=== PATIENT | female | born 1960 | race American Indian/Alaskan Native ===

== ENCOUNTER 2017-02-25 07:43 | Inpatient (IN) | payer MEDICAID ==
[2017-02-25 07:48] VITALS: O2SAT 98; BMI 30.8
--- NOTE | 2017-02-25 07:51 | ED PDOC ---
Psych Transfer Clearance - Clearance Statement Clearance Statement: Reviewed vital signs, lab results and transfer papers. Patient clinically stable for psychiatric admission.
[2017-02-25] MEDS ORDERED: QUEtiapine 300 MG TABLET PO ONE (18:47)
[2017-02-25] MEDS ORDERED: DiphenhydrAMINE 50 mg/ml Inj IVP PRN (18:52)
[2017-02-26 07:05] LABS: ALB/GLOB RATIO 1.3 (1.0-2.1); ALKALINE PHOSPHATASE 99 U/L (38-126); ALT/SGPT 28 U/L (9-52); AST/SGOT 20 U/L (14-36); BILIRUBIN,TOTAL 0.3 mg/dl (0.2-1.3); BLOOD UREA NITROGEN 10 mg/dl (7-17); CALCIUM 9.1 mg/dL (8.4-10.2); CARBON DIOXIDE 26 mmol/L (22-30); CHLORIDE 110 mmol/L (98-107); CHOLESTEROL 137 mg/dL (0-199); GFR AFRICAN-AMERICAN > 60; GLUCOSE,RANDOM 93 mg/dL (65-105); POTASSIUM 3.7 MMOL/L (3.6-5.0); SODIUM 145 mmol/l (132-148); TOTAL PROTEIN 6.5 G/DL (6.3-8.2)
--- NOTE | 2017-02-26 12:30 | PCM.PSYCH ---
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 long standing history of depression treated in community psychiatrist. denies previous suicidal attempts. was feeling overwhelmed suicidal thoughts. Current Medications: Active Medications Generic Name Dose Route Start Last Admin Trade Name Freq PRN Reason Stop Dose Admin Amlodipine Besylate 5 mg 02/26/17 09:00 02/26/17 09:26 Norvasc PO 5 mg DAILY ELVIN Administration Diphenhydramine HCl 50 mg 02/25/17 18:52 Benadryl IVP Q6 PRN anxiety/eps Diphenhydramine HCl 25 mg 02/25/17 18:53 02/26/17 09:29 Benadryl PO 25 mg Q6 PRN Administration prn eps Haloperidol 5 mg 02/25/17 22:00 02/26/17 09:58 Haldol PO Not Given Q6 ELVIN Haloperidol Lactate 5 mg 02/25/17 18:51 Haldol IVP Q6 PRN Psychosis Lorazepam 2 mg 02/25/17 16:40 Ativan IM Q4 PRN Anxiety/Agitation,Unable PO Lorazepam 2 mg 02/25/17 16:40 02/25/17 17:28 Ativan PO 2 mg Q4 PRN Administration Anxiety/Agitation Past Psychiatric History - Past Psychiatric History Prior Professional Help: outpatient inpatient prior various History of Abuse: denies History of Family Illness: questionable history depression Pertinent Medical Hx (Current Medical&Sleep Prob, Allergies): Allergies Allergy/AdvReac Type Severity Reaction Status Date / Time No Known Allergies Allergy Verified 02/07/15 04:51 SEROquel 300 mg PO BID 06/15/14 Xanax 2 mg PO TID 06/15/14 HCTZ 10/17/14 Pantoprazole 10/17/14 Simvastatin 10/17/14 Strovite 10/17/14 Review of Systems - Psychiatric Psychiatric: Abnormal Sleep Pattern, Anhedonia, Anxiety, Irritability Mental Status Examination - Personal Presentation Personal Presentation: Looks younger than stated age - Affect Affect: Constricted - Motor Activity Motor Activity: Psychomotor Retardation - Reliability in Providing Information Reliability in Providing Information: Fair - Speech Additional comments: soft - Mood Mood: Depressed - Formal Thought Process Formal Thought Process: No Impairment - Obsessions/Compulsions Obsessions: No Compulsions: No - Cognitive Functions Orientation: Person, Place, Situation, Time Sensorium: Alert Judgement: Imparied, as evidence by: Other Memory: Remote impaired as evidenced by: Other - Risk Risk: Suicidal - Strength & Assets Inventory Strength & Assets Inventory: Family support (changes in mood suicidal ideations) , Cooperative DSM 5 DX - DSM 5 DSM 5 Diagnosis: 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
[2017-02-26 13:48] VITALS: RESP 18
--- NOTE | 2017-02-26 16:55 | PCM.PYCHPN ---
Psychiatric Progress Note - Psychiatric Progress Note Patient seen today, length of contact: chart review case discussed with team Patient Chief Complaint: was feeling depressed was feeling suicidal ideations decreased energy Problems Identified/Issues Discussed: alteration in mood Medical Problems: per chart Diagnostic Results: per psychiatry per medicine per nursing per social work DSM 5 Symptoms Update: mood, depression, vacillation on mood Medication Change: Yes (start sertraline 25mg po day ) Medical Record Reviewed: Yes Mental Status Examination - Cognitive Function Orientation: Person, Place, Situation, Time Attention: WNL Concentration: WNL Association: WNL Fund of Knowledge: WNL Decription of patient's judgement and insights: impaired - Mood Mood: Depressed - Affect Affect: Constricted - Formal Thought Process Formal Thought Process: No Impairment Goal/Treatment Plan - Goal/Treatment Plan Need for Continued Stay: Remain at risks for inpatient hospitalization, Severe depression anxiety, Discharge may exacerbated symptoms Progress Toward Problem(s) and Goals/Treatment Plan: admission per attending milieu therapy vital signs and clinical observations per protocol and per clinical status hospitalist consult continue seroquel 300mg po hs start sertraline 25mg day first dose today ?depressive sypmptoms discharge planning in progress Estimated Date of D/C: 03/01/17 - Smoking Cessation Smoking Cessation Initiated: No Reason for not providing: deferred
--- NOTE | 2017-02-27 14:02 | PCM.PYCHPN ---
Psychiatric Progress Note - Psychiatric Progress Note Patient seen today, length of contact: discussed with team Patient Chief Complaint: i'm not getting anything for withdrawal Problems Identified/Issues Discussed: pt reports she uses 2mg of xanax regularly 2-3 times daily as prescribed by dr. morris. she is reporting feeling anxious. shaky. she reports feeling much better than prior to admission and wanting to go home soon. she reports some insomnia. isolates in room. not hearing voices today. admits to snorting heroin prior to admission after a period of sobriety. Medication Change: Yes (klonopin tid) Medical Record Reviewed: Yes Mental Status Examination - Cognitive Function Orientation: Person, Place, Situation, Time Memory: Intact Attention: WNL Concentration: WNL Association: WNL Fund of Knowledge: WNL - Mood Mood: Anxious - Affect Affect: Constricted - Speech Speech: Soft - Formal Thought Process Formal Thought Process: No Impairment Psychotic Thoughts and Behaviors: denies hallucinations currently - Suicidal Ideation Suicidal Ideation: No - Homicidal Ideation Homicidal Ideation: No Goal/Treatment Plan - Goal/Treatment Plan Need for Continued Stay: Remain at risks for inpatient hospitalization, Severe depression anxiety, Discharge may exacerbated symptoms Progress Toward Problem(s) and Goals/Treatment Plan: 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
--- NOTE | 2017-02-27 22:17 | HP ---
HISTORY OF PRESENT ILLNESS: This is a 56-year-old -[place] female with a history of hyperten jeff, hyperglyceridemia, and urinary calculi was admitted to the psychiatric floor for psychiatric de compensation. The patient's medical consultation was called for medical followup. The patient denie d having any chest pain or any shortness. REVIEW OF SYSTEMS: Other review of systems is negative. ALLERGIES: No known allergy. HOME MEDICATIONS: Unknown to the patient at this time. SOCIAL HISTORY: Positive history for smoking for more than 20 years. Denied ETOH or substance abuse . FAMILY HISTORY: Noncontributory. PHYSICAL EXAMINATION: GENERAL: The patient is in bed. The patient is comfortable, not in any cardiopulmonary distress. VITAL SIGNS: Blood pressure 125/78. . HEENT: Pupils equal, reactive to light. Normal-appearing mucosa of the conjunctivae, oropharyngeal and nasal membrane mucosa. NECK: Supple, no JVD, no carotid bruit, no lymph node, no thyromegaly. CHEST AND LUNGS: Bilateral symmetrical expansion, good air exchange, no rales, no rhonchi. CARDIOVASCULAR: PMI not localized. S1, S2. No additional sounds. ABDOMEN: Normoactive bowel sounds, no tenderness, no organomegaly, no masses. EXTREMITIES: No cyanosis, no clubbing, no edema. CENTRAL NERVOUS SYSTEM: Alert, awake, oriented x 3. No neurological deficits could be appreciated. ASSESSMENT: Hypertension, hyperglyceridemia x 2. PLAN: We will start the patient on amlodipine 5 mg daily and follow up on the CBC, CMP, TSH, hemoglo bin A1c. . Jaret Escobar MD cc: 167 TT: 02/27/2017 22:17:08 ma
[2017-02-28 09:11] VITALS: BP 142/86; PULSE 77; TEMP 98.5
--- NOTE | 2017-02-28 11:52 | PCM.PYCHDC ---
Mental Status Examination - Mental Status Examination Orientation: Person, Place, Situation, Time Memory: Intact Mood: Anxious Affect: Broad Speech: Appropriate Attention: WNL Concentration: WNL Association: WNL Fund of Knowledge: WNL Formal Thought Process: No Impairment Description of patient's judgement and insight: fair Psychotic Thoughts and Behaviors: denies hallucinations currently Suicidal Ideation: No Current Homicidal Ideation?: No Plan: pt denies any suicidal or homicidal thoughts/plans or intent Discharge Summary - Discharge Note Reason for Hospitalization: pt overdosed on medications Psychiatric History (includes Medical, Family, Personal Hx): history of opioid dependence, anxiety Consultations:: List each consultation separately and include: 1. Reason for request. 2. Findings. 3. Follow-up Consultations: seen by hospitalist Summary of Hospital Course include:: 1. Description of specific treatment plan utilized for patients during their course of treatmen. 2. Summarize the time- course for resolution of acute symptoms and/or regressed behaviors. 3. Describe issues identified and worked on during hospitalization. 4. Describe medication utilized. 5. Describe medical problems identified and treated. 6. Reassessment of suicide risk Summary of Hospital Course: admitted to [facility] and oriented to the unit. placed on routine safety protocols. started on klonpin to help with xanax withdrawal and the dose was decreased to 1mg bid. neurontin was added for anxiety and she tolerated this medication. she was maintained on seroquel at bedtime which was effective. she was started on lexapro 5mg daily. she was social with peers. she was asking to be discharged and was agreeing to follow up with outpatient providers. pt was denying any suicidal or homicidal thoughts/plans or intent. family was supportive. pt was agreeing to come off the klonopin with her providers after discharge. - Final Diagnosis (DSM 5) Condition upon Discharge: STABLE DSM 5: major depression recurrent moderate opioid abuse sedative hypnotic abuse Disposition: HOME/ ROUTINE Follow-up Treatment Plan: follow up with aftercare as directed take medications as prescribed do not use alcohol, tobacco or other illicit substances call 911 if any suicidal or homicidal thoughts klonopin should be tapered off with your outpt providers attend aa/na meetings daily Prescriptions/Medication Reconciliation: amLODIPine [Norvasc] 5 mg PO DAILY #14 tab clonazePAM [Klonopin] 1 mg PO BID #14 tab Escitalopram [Lexapro] 5 mg PO HS #15 tab Gabapentin [Neurontin] 300 mg PO TID #45 cap QUEtiapine [SEROquel] 300 mg PO HS #15 tab traZODone [Desyrel] 50 mg PO HS PRN #15 tab PRN Reason: Insomnia - Smoking Cessation Smoking Cessation Medication prescribed: No - Antipsychotic Medications Pt discharged on 2 or more routine antipsychotic medications: No
== END 2017-02-28 14:15 | disposition home or self-care (01) | DRG 430 ==
LOC: H.ER 07:43 → H.ERHOLD 07:50 → H.PSYCH 08:35
PROVIDERS: ADMIT Psychiatry & Neurology Psychiatry; ATTEND Psychiatry & Neurology Psychiatry
PROC: GZHZZZZ Group Psychotherapy (ICD-10-PCS; principal; 2017-02-25)
DX: F33.1 Major depressive disorder, recurrent, moderate (principal); R45.851 Suicidal ideations; I10 Essential (primary) hypertension; F11.10 Opioid abuse, uncomplicated; F13.10 Sedative, hypnotic or anxiolytic abuse, uncomplicated; F41.9 Anxiety disorder, unspecified; E78.1 Pure hyperglyceridemia